=== PATIENT | female | born 1955 | race Caucasian/White ===

== ENCOUNTER 2021-04-24 06:46 | Inpatient (IN) ==
[2021-04-24 07:38] LABS: Basophils % 0.4 %; Eosinophils # 0.1 K/mcL (0.0-0.6); Eosinophils % 0.7 %; Hematocrit 43.6 % (35.3-44.9); Hemoglobin 14.4 g/dL (11.5-15.4); Immature Granulocytes % 0.3 % (0-4); Lymphocytes # 1.3 K/mcL (0.6-4.6); Lymphocytes % 12.8 %; Mean Corpuscular Volume 87.9 fL (83.0-100.0); Mean Platelet Volume 10.5 fL (9.4-12.4); Monocytes # 0.5 K/mcL (0.0-1.3); Monocytes % 5.1 %; Neutrophils # 8.2 K/mcL (1.6-8.9); Platelet Count 227 K/mcL (140-400); Red Blood Count 4.96 M/mcL (3.82-4.97); Red Cell Distribution Width 12.9 % (11.5-14.5); Segmented Neutrophils % 80.7 %; White Blood Count 10.2 K/mcL (4.3-11.1)
[2021-04-24] MEDS ORDERED: Nitroglycerin 1 INCH/GM PACKET TP ONE (07:39)
[2021-04-24] MEDS ORDERED: Aspirin 81 MG TAB.CHEW PO STA (07:39)
[2021-04-24 07:45] LABS: Prothrombin Time 11.8 Seconds (9.4-12.1)
[2021-04-24 07:48] LABS: Activated Partial Thrombo Time 32.7 Seconds (26.0-36.0)
[2021-04-24 08:04] LABS: Alanine Aminotransferase 24 Units/L (7-52); Albumin 4.5 g/dL (3.5-5.7); Albumin/Globulin Ratio 1.6 (1.1-2.2); Alkaline Phosphatase 91 Units/L (34-104); Aspartate Amino Transferase 23 Units/L (13-39); BUN/Creatinine Ratio 21 (6-26); Bilirubin,Total 0.8 mg/dL (0.3-1.0); Blood Urea Nitrogen 16 mg/dL (8-23); Calcium 10.5 mg/dL (8.6-10.3); Carbon Dioxide 24 mEq/L (23-29); Chloride 106 mEq/L (98-107); Creatine Kinase 54 Units/L (30-223); Globulin 2.8 g/dL (2.4-3.5); Glucose 127 mg/dL (70-105); Lipase 20 Units/L (11-82); Osmolality,Calculated 289 (280-300); Potassium 4.4 mEq/L (3.5-5.1); Sodium 138 mEq/L (136-145); Total Protein 7.3 g/dL (6.4-8.9); Troponin I 0.04 ng/mL (< 0.04); eGFR For African Americans > 60 (> 60); eGFR For Non-African Americans > 60 (> 60)
[2021-04-24] MEDS ORDERED: Isovue-370 500 ML BOTTLE IVP ONE (09:14)
[2021-04-24] MEDS ORDERED: *HR* Heparin 5,000 UNIT/ML VIAL IVP ONE (09:43)
[2021-04-24] MEDS: Heparin 25,000UNIT/250ML 1/2NS 25,000 UNIT/250 ML IV.SOLN IVC SCH (09:59)
[2021-04-24 10:23] LABS: Hematocrit 43.4 % (35.3-44.9); Hemoglobin 14.3 g/dL (11.5-15.4); Mean Corpuscular HGB Conc 32.9 g/dL (31.6-35.5); Mean Corpuscular Hemoglobin 28.9 pg (28.0-33.3); Mean Corpuscular Volume 87.7 fL (83.0-100.0); Mean Platelet Volume 10.4 fL (9.4-12.4); Platelet Count 241 K/mcL (140-400); Red Blood Count 4.95 M/mcL (3.82-4.97); Red Cell Distribution Width 12.8 % (11.5-14.5); White Blood Count 12.2 K/mcL (4.3-11.1)
[2021-04-24 10:34] LABS: Heparin anti-factor XA UFH < 0.04 IU/mL (0.30-0.70)
[2021-04-24 10:35] LABS: Prothrombin Time 11.6 Seconds (9.4-12.1)
[2021-04-24] MEDS ORDERED: Naloxone 0.4 MG/ML INJ IVP PRN (11:58)
[2021-04-24] MEDS ORDERED: Acetaminophen 325 MG TABLET PO PRN (11:58)
[2021-04-24] MEDS ORDERED: Ondansetron 4 MG/2 ML VIAL IVP PRN (11:58)
[2021-04-24] MEDS ORDERED: Melatonin 3 MG TABLET PO PRN (11:58)
[2021-04-24] MEDS ORDERED: Perflutren Lipid Microsphere 1.3 ML in 0.9 % Sodium Chloride 8.7 ML IVP PRN (12:01)
[2021-04-24] MEDS ORDERED: Furosemide 40 MG/4 ML VIAL IVP ONE (12:02)
[2021-04-24] MEDS: cefTRIAXone 1,000 MG in Water for inj. (sterile) 10 ML IVP SCH (12:59)
[2021-04-24] MEDS: Azithromycin 500 MG in 0.9 % Sodium Chloride 250 ML IVPB SCH (12:59)
[2021-04-24 14:15] LABS: Chol/HDL Ratio 4.5 (0-4.9)
[2021-04-24] MEDS ORDERED: *HR* Metoprolol 5 MG/5 ML VIAL IVP ONE ×2 (14:36→14:40)
[2021-04-24 16:58] LABS: Adenovirus Not Detected (Not Detect); Bordetella Pertussis Not Detected (Not Detect); Chlamydophila pneumoniae Not Detected (Not Detect); Coronavirus 229E Not Detected (Not Detect); Coronavirus HKU1 Not Detected (Not Detect); Coronavirus NL63 Not Detected (Not Detect); Coronavirus OC43 Not Detected (Not Detect); Human Metapneumovirus Not Detected (Not Detect); Human Rhinovirus/Enterovirus Not Detected (Not Detect); Influenza A Subtype 2009 H1 Not Detected (Not Detect); Influenza B Not Detected (Not Detect); Mycoplasma pneumoniae Not Detected (Not Detect); Parainfluenza Virus 1 Not Detected (Not Detect); Parainfluenza Virus 2 Not Detected (Not Detect); Parainfluenza Virus 3 Not Detected (Not Detect); Parainfluenza Virus 4 Not Detected (Not Detect); Respiratory Syncytial Virus Not Detected (Not Detect); SARS-CoV-2 Not Detected (Not Detect)
[2021-04-24] MEDS ORDERED: *HR* Heparin 5,000 UNIT/ML VIAL IVP PRN ×2 (17:57)
[2021-04-25 00:32] LABS: Hematocrit 41.6 % (35.3-44.9); Hemoglobin 13.5 g/dL (11.5-15.4); Mean Corpuscular HGB Conc 32.5 g/dL (31.6-35.5); Mean Corpuscular Hemoglobin 28.4 pg (28.0-33.3); Mean Corpuscular Volume 87.6 fL (83.0-100.0); Mean Platelet Volume 10.3 fL (9.4-12.4); Platelet Count 208 K/mcL (140-400); Red Blood Count 4.75 M/mcL (3.82-4.97); Red Cell Distribution Width 12.9 % (11.5-14.5); White Blood Count 6.7 K/mcL (4.3-11.1)
[2021-04-25 00:44] LABS: BUN/Creatinine Ratio 22 (6-26); Blood Urea Nitrogen 17 mg/dL (8-23); Calcium 9.7 mg/dL (8.6-10.3); Carbon Dioxide 25 mEq/L (23-29); Chloride 105 mEq/L (98-107); Glucose 111 mg/dL (70-105); Osmolality,Calculated 286 (280-300); Potassium 3.9 mEq/L (3.5-5.1); Sodium 137 mEq/L (136-145); eGFR For African Americans > 60 (> 60); eGFR For Non-African Americans > 60 (> 60)
[2021-04-25] MEDS: Heparin 25,000UNIT/250ML 1/2NS 25,000 UNIT/250 ML IV.SOLN IVC SCH (06:09)
[2021-04-25 08:15] LABS: Troponin I 0.05 ng/mL (< 0.04)
[2021-04-25] MEDS: Aspirin 81 MG TAB.CHEW PO SCH (08:59)
[2021-04-25] MEDS: lisinopriL 5 MG TABLET PO SCH (08:59)
[2021-04-25] MEDS ORDERED: Furosemide 40 MG/4 ML VIAL IVP SCH (09:00)
[2021-04-25] MEDS: cefTRIAXone 1,000 MG in Water for inj. (sterile) 10 ML IVP SCH (09:00)
[2021-04-25] MEDS ORDERED: Furosemide 40 MG in 0.9 % Sodium Chloride 50 ML IV ONE (11:30)
[2021-04-25] MEDS ORDERED: Furosemide 40 MG/4 ML VIAL IVP ONE (11:40)
[2021-04-25] MEDS: Azithromycin 500 MG in 0.9 % Sodium Chloride 250 ML IVPB SCH (12:14)
[2021-04-25] MEDS: Furosemide 40 MG/4 ML VIAL IVP SCH (19:41)
[2021-04-26] MEDS: Heparin 25,000UNIT/250ML 1/2NS 25,000 UNIT/250 ML IV.SOLN IVC SCH (03:19)
[2021-04-26] MEDS: Furosemide 40 MG/4 ML VIAL IVP SCH (06:00)
[2021-04-26 06:27] LABS: Hematocrit 41.3 % (35.3-44.9); Hemoglobin 13.5 g/dL (11.5-15.4); Mean Corpuscular HGB Conc 32.7 g/dL (31.6-35.5); Mean Corpuscular Volume 88.8 fL (83.0-100.0); Mean Platelet Volume 10.4 fL (9.4-12.4); Platelet Count 208 K/mcL (140-400); Red Blood Count 4.65 M/mcL (3.82-4.97); White Blood Count 6.5 K/mcL (4.3-11.1)
[2021-04-26 06:55] LABS: BUN/Creatinine Ratio 25 (6-26); Blood Urea Nitrogen 23 mg/dL (8-23); Carbon Dioxide 25 mEq/L (23-29); Chloride 106 mEq/L (98-107); Glucose 100 mg/dL (70-105); Osmolality,Calculated 294 (280-300); Potassium 4.2 mEq/L (3.5-5.1); Sodium 140 mEq/L (136-145); eGFR For African Americans > 60 (> 60); eGFR For Non-African Americans > 60 (> 60)
[2021-04-26] MEDS: lisinopriL 5 MG TABLET PO SCH (07:52)
[2021-04-26] MEDS: Aspirin 81 MG TAB.CHEW PO SCH (07:53)
[2021-04-26] MEDS: cefTRIAXone 1,000 MG in Water for inj. (sterile) 10 ML IVP SCH (07:53)
[2021-04-26] MEDS ORDERED: *HR* Heparin 10,000 UNIT/10 ML VIAL ONE (10:18)
[2021-04-26] MEDS ORDERED: Heparin 1,000 UNITS/500 mL 500 ML ONE (10:18)
[2021-04-26] MEDS ORDERED: Nitroglycerin 1,000 MCG/5 ML VIAL IV ONE (10:18)
[2021-04-26] MEDS ORDERED: 0.9 % Sodium Chloride 2,000 ML ONE (10:18)
[2021-04-26] MEDS ORDERED: ISOVUE-370 200 ML INFUS..BTL ONE ×2 (10:18→11:12)
[2021-04-26] MEDS ORDERED: *HR* Midazolam HCl 2 MG/2 ML VIAL ONE (10:34)
[2021-04-26] MEDS ORDERED: *HR* FentaNYL (PF) 100 MCG/2 ML VIAL ONE (10:35)
[2021-04-26] MEDS ORDERED: Adenosine 90 MG/30 ML MLS IV ONE (11:08)
[2021-04-26] MEDS ORDERED: Tirofiban 12.5 MG/250ML 12.5 MG/250 ML BAG ONE (11:08)
[2021-04-26] MEDS ORDERED: *HR* Ticagrelor 90 MG TABLET ONE (11:18)
[2021-04-26] MEDS ORDERED: Tirofiban 12.5 MG/250ML 12.5 MG/250 ML BAG IVC SCH (11:30)
[2021-04-26] MEDS: Metoprolol XL (24 HR) Succ 25 MG TAB.ER.24H PO SCH (12:13)
[2021-04-26] MEDS: Furosemide 40 MG TABLET PO SCH (17:29)
[2021-04-26] MEDS: *HR* Heparin 5,000 UNIT/ML VIAL SQ SCH (17:31)
[2021-04-26] MEDS: *HR* Ticagrelor 90 MG TABLET PO SCH (22:00)
[2021-04-27] MEDS: *HR* Heparin 5,000 UNIT/ML VIAL SQ SCH (05:37)
[2021-04-27 07:11] VITALS: BP 122/72
[2021-04-27 07:44] LABS: Hematocrit 41.9 % (35.3-44.9); Hemoglobin 14.1 g/dL (11.5-15.4); Mean Corpuscular HGB Conc 33.7 g/dL (31.6-35.5); Mean Corpuscular Hemoglobin 29.8 pg (28.0-33.3); Mean Corpuscular Volume 88.6 fL (83.0-100.0); Mean Platelet Volume 10.5 fL (9.4-12.4); Platelet Count 215 K/mcL (140-400); Red Blood Count 4.73 M/mcL (3.82-4.97); Red Cell Distribution Width 12.9 % (11.5-14.5); White Blood Count 7.3 K/mcL (4.3-11.1)
[2021-04-27 08:20] LABS: BUN/Creatinine Ratio 23 (6-26); Blood Urea Nitrogen 22 mg/dL (8-23); Calcium 10.4 mg/dL (8.6-10.3); Carbon Dioxide 27 mEq/L (23-29); Chloride 105 mEq/L (98-107); Glucose 99 mg/dL (70-105); Osmolality,Calculated 295 (280-300); Potassium 4.4 mEq/L (3.5-5.1); Sodium 141 mEq/L (136-145); eGFR For African Americans > 60 (> 60); eGFR For Non-African Americans 58 (> 60)
[2021-04-27] MEDS: *HR* Ticagrelor 90 MG TABLET PO SCH (08:32)
[2021-04-27] MEDS: Aspirin 81 MG TAB.CHEW PO SCH (08:32)
[2021-04-27] MEDS: lisinopriL 5 MG TABLET PO SCH (08:32)
[2021-04-27] MEDS: Metoprolol XL (24 HR) Succ 25 MG TAB.ER.24H PO SCH (08:33)
[2021-04-27] MEDS: Furosemide 40 MG TABLET PO SCH (08:33)
[2021-04-27] MEDS: cefTRIAXone 1,000 MG in Water for inj. (sterile) 10 ML IVP SCH (08:34)
[2021-04-27] MEDS ORDERED: Nitroglycerin 0.4 MG TAB.SUBL SL PRN (08:59)
[2021-04-28] MEDS ORDERED: Furosemide 40 MG TABLET PO SCH (09:00)
== END 2021-04-27 12:52 | disposition home or self-care (01) | DRG 246 ==
LOC: EMEROOARM 06:46 → 2NENU 06:46 → SUATTDRO 11:50 → 2NENU 12:34
PROVIDERS: ADMIT Internal Medicine; ATTEND Family Medicine